=== PATIENT | female | born 1980 | race Caucasian/White ===

== ENCOUNTER → 2020-08-17 | Outpatient (CLI) | payer MEDICAID ==
[2020-08-17 10:39] LABS: EOS # 0.1 (0.04-0.40); EOS % 1.9 % (1.0-5.0); HEMATOCRIT 41.2 % (37.0-47.0); HEMOGLOBIN 13.1 g/dL (12.5-16.0); LYMPH# 1.2 (1.50-4.00); MEAN CELL VOLUME 84 fl (78-100); MEAN CORPUSCULAR HEMOGLOBIN 27 pg (27-31); MEAN CORPUSCULAR HGB CONC 32 g/dL (33-37); MEAN PLATELET VOLUME 11.2 fl (7.4-10.4); MONO # 0.3 (0.20-0.80); NEU # 2.3 (1.40-6.50); PLATELET COUNT 242 K/mm3 (130-400); RED BLOOD COUNT 4.88 M/mm3 (4.10-5.30); RED CELL DISTRIBUTION WIDTH 15.1 % (11.5-14.5); WHITE BLOOD COUNT 3.8 K/mm3 (4.8-10.8)
[2020-08-17 10:46] LABS: ALBUMIN 4.4 g/dL (3.5-5.0); POTASSIUM 3.9 mmol/L (3.5-5.1)
[2020-08-17 10:47] LABS: CALCIUM 9.1 mg/dL (8.3-10.5)
[2020-08-17 10:50] LABS: TOTAL BILIRUBIN 0.7 mg/dL (0.2-1.2)
[2020-08-17 22:44] LABS: HOMOCYSTEINE SERUM OR PLASMA 4.7 umol/L (4.0-14.0)
[2020-08-17 22:54] LABS: CORTISOL RANDOM 6 ug/dL (3-20); ESTRADIOL <10 pg/mL (()); PROGESTERONE <0.1 ng/mL (())
== END ==
LOC: LAB 10:02
DX: Z01.89 Encounter for other specified special examinations (principal)